=== PATIENT | male | born 1975 | race Hispanic/Latino ===

== ENCOUNTER 2019-11-12 08:52 | Inpatient (IN) | payer OTHER ==
[~2019-11-12] VITALS: Ht 167.6 cm; Wt 73.4 kg
[2019-11-12] MEDS ORDERED: TRAMADOL HCL 50 MG TABLET ONE (09:53)
[2019-11-12] MEDS ORDERED: ONDANSETRON HCL 4 MG/2 ML VIAL IVP PRN (10:45)
[2019-11-12] MEDS ORDERED: GLUCAGON 1MG KIT 1 MG ML IM PRN (10:45)
[2019-11-12] MEDS ORDERED: DEXTROSE 50%-WATER 50 ML DISP.SYRIN IV PRN (10:45)
[2019-11-12] MEDS ORDERED: MORPHINE SULFATE 4 MG/1ML SYG ONE (11:06)
[2019-11-12] MEDS ORDERED: ONDANSETRON HCL 4 MG/2 ML VIAL ONE (11:07)
[2019-11-12] MEDS: INSULIN HUMULIN R 100 UNIT/ML 3ML SQ SCH ×3 (11:30→20:07)
[2019-11-12 11:33] LABS: BASOPHILS % (AUTO) 0.3 % (0.0-5.0); EOSINOPHILS % (AUTO) 0.5 % (0.0-8.0); HEMATOCRIT 43.2 % (42-54); LYMPHOCYTES % (AUTO) 13.3 % (21.0-51.0); MEAN CORPUSCULAR HEMOGLOBIN 31.3 pg (27.0-33.0); MEAN CORPUSCULAR HGB CONC 33.8 g/dL (32.0-36.0); MEAN CORPUSCULAR VOLUME 92.5 fL (79-99); MONOCYTES % (AUTO) 9.1 % (3.0-13.0); NEUTROPHILS % (AUTO) 76.6 % (40.0-77.0); PLATELET COUNT (AUTO) 212 K/uL (130-400); RED BLOOD CELL COUNT(AUTO) 4.67 MIL/uL (4.50-6.20); RED CELL DISTRIBUTION WIDTH 12.9 % (11.0-15.5); WHITE BLOOD COUNT (AUTO) 12.8 K/uL (4.8-10.8)
[2019-11-12 11:51] LABS: INR 0.98 (0.85-1.15); PARTIAL THROMBOPLASTIN TIME 26.3 SEC (26.3-35.5); PROTHROMBIN TIME 10.3 SEC (9.6-11.6)
[2019-11-12 11:54] LABS: HEMOGLOBIN A1C 6.8 % (4.0-6.0)
[2019-11-12 11:56] LABS: CREATININE 0.7 mg/dL (0.5-1.5); POTASSIUM 3.6 mmol/L (3.5-5.1)
[2019-11-12 12:02] LABS: ALBUMIN 3.7 g/dL (3.5-5.0); BILIRUBIN,TOTAL 0.3 mg/dL (0.2-1.0)
[2019-11-12 12:30] VITALS: BP 138/73
[2019-11-12] MEDS: MORPHINE SULFATE 2 MG/ML 1ML SYG IVP PRN ×2 (14:57→20:24)
[2019-11-12 16:00] VITALS: BP 118/64
[2019-11-12 20:00] VITALS: BP 126/67
[2019-11-12] MEDS: FAMOTIDINE/PF 20 MG/2 ML VIAL IV SCH (20:22)
[2019-11-13] VITALS: BP 123/67
[2019-11-13 04:00] VITALS: BP 120/71
[2019-11-13] MEDS: MORPHINE SULFATE 2 MG/ML 1ML SYG IVP PRN (04:04)
[2019-11-13 06:11] LABS: BASOPHILS % (AUTO) 0.3 % (0.0-5.0); EOSINOPHILS % (AUTO) 1.8 % (0.0-8.0); LYMPHOCYTES % (AUTO) 22.3 % (21.0-51.0); MEAN CORPUSCULAR HEMOGLOBIN 31.7 pg (27.0-33.0); MEAN CORPUSCULAR VOLUME 93.1 fL (79-99); MONOCYTES % (AUTO) 12.3 % (3.0-13.0); NEUTROPHILS % (AUTO) 62.9 % (40.0-77.0); PLATELET COUNT (AUTO) 187 K/uL (130-400); RED BLOOD CELL COUNT(AUTO) 4.51 MIL/uL (4.50-6.20); RED CELL DISTRIBUTION WIDTH 12.7 % (11.0-15.5); WHITE BLOOD COUNT (AUTO) 9.6 K/uL (4.8-10.8)
[2019-11-13 06:21] LABS: CREATININE 0.6 mg/dL (0.5-1.5); POTASSIUM 3.6 mmol/L (3.5-5.1)
[2019-11-13] MEDS: INSULIN HUMULIN R 100 UNIT/ML 3ML SQ SCH ×2 (06:30→12:45)
[2019-11-13] MEDS ORDERED: CEFAZOLIN SODIUM 1 GM VIAL ONE (07:14)
[2019-11-13] MEDS ORDERED: SODIUM CHLORIDE 0.9% 1000ML 0 ML IV ONE (07:16)
[2019-11-13] MEDS: FAMOTIDINE/PF 20 MG/2 ML VIAL IV SCH (08:54)
[2019-11-13] MEDS ORDERED: ACETAMINOPHEN-CODEINE 300/30MG TAB PO SCH (10:58)
[2019-11-13 12:00] VITALS: BP 112/65
[2019-11-13] MEDS ORDERED: ACETAMINOPHEN-CODEINE 300/30MG TAB PO PRN (14:15)
--- NOTE | 2019-11-13 17:07 | NUR ---
DISCHARGE INSTRUCTIONS GIVEN TO PATIENT, FAMILY AT BEDSIDE. MADE AWARE OF NEED TO FOLLOW UP WITH DR. CHACKO IN 10 DAYS, PROVIDED WITH CONTACT INFORMATION TO SCHEDULE APPOINTMENT. PROVIDED WITH PRINTED RX FOR TYLENOL WITH CODEINE. IV REMOVED. PATIENT AT THIS TIME DENIES PAIN, CONTINUES WITH 2+ PITTING EDEMA TO LEFT FOOT, AWARE OF NON WEIGHT BEARING STATUS. CRUTCHES AND BOOT AT BEDSIDE. PATIENT WILL BE TRANSPORTED HOME BY FAMILY
--- NOTE | 2019-11-13 17:16 | NUR ---
cm note pt resides at home with spouse, independent with ambulation, adls, dc plan is back home. provided with good rx assist information for meds. pt has crutches at bedside dc plan is back home. Addendum: 11/13/19 at 1718 by DAPHNE ROLAND Amended: Links added.
== END 2019-11-13 17:25 | disposition home or self-care (01) | DRG 563 ==
LOC: EDH 08:52 → EDHIP 08:53 → 3AH 12:52
PROVIDERS: ADMIT Hospitalist; ATTEND Hospitalist
DX: S92.312A Displaced fracture of first metatarsal bone, left foot, initial encounter for closed fracture (principal); E11.9 Type 2 diabetes mellitus without complications; R58 Hemorrhage, not elsewhere classified; F17.210 Nicotine dependence, cigarettes, uncomplicated; Y93.89 Activity, other specified; Y92.89 Other specified places as the place of occurrence of the external cause; Y99.8 Other external cause status
CPT/HCPCS: 36415; 71045; 73630; 73700; 80048; 80053; 82550; 82948; 83036; 84484; 85025; 85610; 85730; 93005; G0378; J0690; J1815; J2270; J2405; J3490; J7030

== ENCOUNTER 2019-12-01 14:40 | Inpatient (IN) | payer SELFPAY ==
[~2019-12-01] VITALS: Ht 167.6 cm; Wt 73.9 kg
[2019-12-01 16:09] LABS: BASOPHILS % (AUTO) 0.4 % (0.0-5.0); EOSINOPHILS % (AUTO) 1.9 % (0.0-8.0); HEMATOCRIT 45.6 % (42-54); LYMPHOCYTES % (AUTO) 22.6 % (21.0-51.0); MEAN CORPUSCULAR HGB CONC 33.3 g/dL (32.0-36.0); MEAN CORPUSCULAR VOLUME 93.1 fL (79-99); MONOCYTES % (AUTO) 8.1 % (3.0-13.0); NEUTROPHILS % (AUTO) 66.7 % (40.0-77.0); PLATELET COUNT (AUTO) 252 K/uL (130-400); RED CELL DISTRIBUTION WIDTH 12.4 % (11.0-15.5); WHITE BLOOD COUNT (AUTO) 10.3 K/uL (4.8-10.8)
[2019-12-01 16:29] LABS: CREATININE 0.9 mg/dL (0.5-1.5); INR 0.97 (0.85-1.15); PARTIAL THROMBOPLASTIN TIME 25.7 SEC (26.3-35.5); POTASSIUM 4.2 mmol/L (3.5-5.1); PROTHROMBIN TIME 10.2 SEC (9.6-11.6)
[2019-12-01 16:34] LABS: ALBUMIN 3.6 g/dL (3.5-5.0); BILIRUBIN,TOTAL 0.2 mg/dL (0.2-1.0); TOTAL PROTEIN, SERUM 7.4 g/dL (6.0-8.3)
[2019-12-01] MEDS ORDERED: ACETAMINOPHEN 325 MG TAB PO PRN ×2 (19:15)
[2019-12-01] MEDS ORDERED: DEXTROSE 50%-WATER 50 ML DISP.SYRIN IV PRN (19:15)
[2019-12-01] MEDS ORDERED: ONDANSETRON HCL 4 MG/2 ML VIAL IV PRN (19:15)
[2019-12-01] MEDS ORDERED: KETOROLAC TROMETHAMINE 30MG/ML IV PRN (19:15)
[2019-12-01] MEDS ORDERED: GLUCAGON 1MG KIT 1 MG ML IM PRN (19:15)
[2019-12-01 21:18] VITALS: BP 114/67
--- NOTE | 2019-12-01 21:20 | NUR ---
ADMISSION PT ADMITTED INTO ROOM 412, AWAKE ALERT AND VERBALLY RESPONSIVE. LEFT FOOT OBSERVED TO BE SWOLLEN AND REDDENED, NO C/O PAIN OR DISCOMFORT AT THIS TIME. PT AND FAMILY MEMBER AT BEDSIDE ORIENTED TO ROOM, CALL BOX WITHIN REACH, BED IN LOWEST POSITION. Addendum: 12/01/19 at 2158 by EDDIE FOUNTAIN RN Amended: Links added.
[2019-12-01] MEDS: FAMOTIDINE/PF 20 MG/2 ML VIAL IV SCH (21:31)
[2019-12-01] MEDS: INSULIN HUMULIN R 100 UNIT/ML 3ML SQ SCH (21:49)
[2019-12-02] VITALS (26 sets, daily range): BP systolic 100–129; BP diastolic 60–74
[2019-12-02 05:52] LABS: BASOPHILS % (AUTO) 0.5 % (0.0-5.0); EOSINOPHILS % (AUTO) 2.2 % (0.0-8.0); HEMATOCRIT 44.4 % (42-54); LYMPHOCYTES % (AUTO) 30.9 % (21.0-51.0); MEAN CORPUSCULAR HEMOGLOBIN 30.7 pg (27.0-33.0); MEAN CORPUSCULAR HGB CONC 32.9 g/dL (32.0-36.0); MEAN CORPUSCULAR VOLUME 93.3 fL (79-99); MONOCYTES % (AUTO) 9.5 % (3.0-13.0); NEUTROPHILS % (AUTO) 56.6 % (40.0-77.0); PLATELET COUNT (AUTO) 244 K/uL (130-400); RED BLOOD CELL COUNT(AUTO) 4.76 MIL/uL (4.50-6.20); RED CELL DISTRIBUTION WIDTH 12.4 % (11.0-15.5); WHITE BLOOD COUNT (AUTO) 8.7 K/uL (4.8-10.8)
[2019-12-02 06:18] LABS: ALBUMIN 3.1 g/dL (3.5-5.0); BILIRUBIN,TOTAL 0.2 mg/dL (0.2-1.0); CREATININE 0.8 mg/dL (0.5-1.5); POTASSIUM 3.7 mmol/L (3.5-5.1); TOTAL PROTEIN, SERUM 6.8 g/dL (6.0-8.3)
[2019-12-02 06:21] LABS: HEMOGLOBIN A1C 7.2 % (4.0-6.0)
[2019-12-02] MEDS: INSULIN HUMULIN R 100 UNIT/ML 3ML SQ SCH ×3 (06:48→16:14)
[2019-12-02] MEDS: FAMOTIDINE/PF 20 MG/2 ML VIAL IV SCH ×2 (08:34→20:14)
--- NOTE | 2019-12-02 12:05 | NUR ---
TO OR PATIENT TRANSPORTED TO OR VIA HOSPITAL BED IN STABLE CONDITION. SPOUSE ACCOMPANYING PATIENT TO OR HOLDING.
[2019-12-02] MEDS ORDERED: LACTATED RINGERS 1000ML 0 ML IV ONE (12:08)
[2019-12-02] MEDS ORDERED: SODIUM CHLORIDE 0.9% 1000ML 1,000 ML IV ONE (12:09)
--- NOTE | 2019-12-02 12:16 | NUR ---
potential for infection: shaved left calf to left 0etes per parthapedrito hay, followed by wiping with kenneth: 2 % chlorhexidine gluconate cloth patients pre-op skin prep.
[2019-12-02] MEDS ORDERED: ROCURONIUM 10MG/1ML SYR 10 MG/ML ML ONE (12:51)
[2019-12-02] MEDS ORDERED: FENTANYL CITRATE PF 50 MCG/1 ML 2ML VIAL ONE (12:51)
[2019-12-02] MEDS ORDERED: PROPOFOL 10 MG/ML 20ML VIAL IV ONE (12:51)
[2019-12-02] MEDS ORDERED: LIDOCAINE HCL MPF 1% 5ML VIAL ONE (12:51)
[2019-12-02] MEDS ORDERED: MIDAZOLAM HCL 1 MG/ML 2ML VIAL ONE (12:51)
[2019-12-02] MEDS ORDERED: SUCCINYLCHOLINE 200MG/10ML SYR ONE (12:58)
[2019-12-02] MEDS ORDERED: CEFAZOLIN SODIUM 1 GM VIAL ONE (13:22)
[2019-12-02] MEDS ORDERED: ONDANSETRON HCL 4 MG/2 ML VIAL ONE (13:25)
[2019-12-02] MEDS ORDERED: ROPIVACAINE 0.5% 5MG/ML 30ML IJ ONE ×2 (13:25→13:36)
[2019-12-02] MEDS ORDERED: NEOSTIGMINE 5MG/5ML SYR IV ONE (13:27)
[2019-12-02] MEDS ORDERED: GLYCOPYRROLATE 1 MG/5 ML SYRINGE ONE (13:27)
[2019-12-02] MEDS: SODIUM CHLORIDE 0.9% 1000ML 1,000 ML IV SCH ×3 (14:30→20:03)
[2019-12-02] MEDS ORDERED: MEPERIDINE-PF 25 MG/ML SYG ONE (14:39)
[2019-12-02] MEDS ORDERED: OXYCODONE HCL 5 MG TAB PO PRN (15:15)
[2019-12-02] MEDS ORDERED: DiphenhydrAMINE HCL 50 MG/ML VIAL IVP PRN (15:15)
[2019-12-02] MEDS ORDERED: FERROUS FUMARATE 324 MG TABLET PO PRN (15:15)
[2019-12-02] MEDS ORDERED: POTASSIUM CHLORIDE 20MEQ/100ML 100 ML IV PRN (15:15)
[2019-12-02] MEDS ORDERED: DIPHENHYDRAMINE HCL 25 MG CAPSULE PO PRN (15:15)
--- NOTE | 2019-12-02 15:30 | NUR ---
S/P SURGERY PATIENT RECEIVED FROM PACU VIA HOSPITAL BED IN STABLE CONDITION. SPOUSE IS AT BEDSIDE. NO C/O PAIN AT THIS TIME. V/S ARE STABLE. DRESSING TO LEFT LEG/FOOT DRY AND INTACT. REORIENTED TO ROOM AND USE OF CALL LIGHT. BED IS IN LOWEST POSITION AND LOCKED. WILL CONTINUE TO MONITOR.
--- NOTE | 2019-12-02 15:46 | NUR ---
[facility] [employer] PATIENT FOR D/C PLANNING EMPLOYED, CURRENTLY ON LEAVE, PREVIOUSLY INDEPENDENT, LIVES WITH SPOUSE [facility] WILL PROVIDE TRANSPORT. [employer] PKT GIVEN AND ENCOURAGED TO FIND A RENE BENDER. STATES MED INSURANCE STARTS IN DECEMBER SPOUSE ASKING TO HOSPITAL TO GIVE A WHEELCHAIR. CM ADVISED OF OTHER RESOURCES DCP HOME Addendum: 12/02/19 at 1551 by LUZ ELENA WHEAT RN CM Amended: Links added.
[2019-12-02] MEDS ORDERED: MORPHINE SULFATE 2 MG/ML 1ML SYG IVP PRN (18:15)
[2019-12-02] MEDS: METFORMIN HCL 500 MG TABLET PO SCH (18:43)
[2019-12-03 03:22] VITALS: BP 108/64
[2019-12-03] MEDS ORDERED: CLINDAMYCIN 600 MG/D5% WATER 50 ML IV ONE (03:53)
[2019-12-03] MEDS ORDERED: CLINDAMYCIN 600MG IN 0.9% SOD 50 ML IV SCH (06:00)
[2019-12-03 08:17] VITALS: BP 110/63
[2019-12-03] MEDS ORDERED: POLYETHYLENE GLYCOL 3350 17 GM POWD.PACK PO SCH (09:00)
[2019-12-03] MEDS: FAMOTIDINE/PF 20 MG/2 ML VIAL IV SCH (09:11)
[2019-12-03] MEDS: METFORMIN HCL 500 MG TABLET PO SCH (09:11)
[2019-12-03 11:24] VITALS: BP 109/58
[2019-12-03] MEDS ORDERED: PSYLLIUM SEED 1 EACH PACKET PO SCH (12:00)
[2019-12-03] MEDS: CLINDAMYCIN 600MG IN 0.9% SOD 50 ML IV SCH (13:30)
[2019-12-03] MEDS ORDERED: METF-444 PO (15:28)
[2019-12-03] MEDS ORDERED: FERR324T10 PO (15:28)
--- NOTE | 2019-12-03 16:17 | NUR ---
DISCHARGE INSTRUCTIONS GIVEN TO PATIENT. MADE AWARE OF NEED TO FOLLOW UP WITH PCP IN 2-3 DAYS. PATIENT STATED HE DOES NOT HAVE A PCP. PROVIDED WITH LIST OF LOCAL PCP. MADE AWARE OF NEED TO FOLLOW UP WITH DR. CHACKO IN 2 WEEKS, AND NON WEIGHT BEARING TO LEFT FOOT. INCISION CLEAN DRY AND INTACT. NO SIGNS AND SYMPTOMS OF INFECTIONS. ORTHO BOOT IN PLACE. IV REMOVED. PATIENT DENIES PAIN AT THIS TIME. WILL BE TAKEN HOME BY SPOUSE
[2019-12-03 16:34] VITALS: BP 110/62
[2019-12-04] MEDS ORDERED: BISACODYL 5 MG TABLET.DR PO PRN (15:15)
[2019-12-05] MEDS ORDERED: BISACODYL 10 MG SUPP.RECT RC PRN (15:15)
== END 2019-12-03 17:20 | disposition home or self-care (01) | DRG 505 ==
LOC: EDH 14:40 → EDHIP 14:41 → 4BH 21:12
PROVIDERS: ADMIT Internal Medicine; ATTEND Internal Medicine
PROC: 0QSP34Z Reposition Left Metatarsal with Internal Fixation Device, Percutaneous Approach (ICD-10-PCS; principal; 2019-12-02 12:55)
DX: S92.312A Displaced fracture of first metatarsal bone, left foot, initial encounter for closed fracture (principal); E11.9 Type 2 diabetes mellitus without complications; F17.210 Nicotine dependence, cigarettes, uncomplicated; X58.XXXA Exposure to other specified factors, initial encounter; S92.002A Unspecified fracture of left calcaneus, initial encounter for closed fracture; S92.252A Displaced fracture of navicular [scaphoid] of left foot, initial encounter for closed fracture; S92.242A Displaced fracture of medial cuneiform of left foot, initial encounter for closed fracture; Z82.49 Family history of ischemic heart disease and other diseases of the circulatory system; Z83.3 Family history of diabetes mellitus; Y93.89 Activity, other specified; Y92.89 Other specified places as the place of occurrence of the external cause; Y99.8 Other external cause status; V03.90XA Pedestrian on foot injured in collision with car, pick-up truck or van, unspecified whether traffic or nontraffic accident, initial encounter
CPT/HCPCS: 36415; 71045; 73630; 80053; 82948; 83036; 85025; 85610; 85730; 93005; C1713; G0378; G0480; J0330; J0690; J1815; J2175; J2250; J2405; J2704; J2710; J2795; J3010; J3490; J7030; J7120